=== PATIENT | male | born 1985 | race Caucasian/White ===

== ENCOUNTER 2020-07-29 22:29 | Emergency (ER) | payer SELFPAY ==
[2020-07-30] MEDS ORDERED: KETOROLAC TROMETHAMINE 60 MG/2 ML SDV IM ONE (00:05)
--- NOTE | 2020-07-30 00:06 | ER Document Report ---
ED Medical Screen (RME) - General Chief Complaint: Flank Pain Stated Complaint: FLANK PAIN Notes: Patient is a 34-year-old white male with a history of kidney stones who presents the emergency department the chief complaint of left flank pain that began this evening. He states this feels similar to the kidney stone he had previously but worse. States the pain has fluctuated over the past 3 hours. States he was lying down in bed in tears earlier today. Denies any difficulty with urination. Denies any testicular pain or swelling. No nausea or vomiting. No fever. I have treated and performed a rapid initial assessment of this patient. A comprehensive ED assessment and evaluation of the patient, analysis of test results and completion of medical decision making process will be conducted by additional ED providers. PHYSICAL EXAMINATION: GENERAL: Well-appearing, well-nourished and in no acute distress. A&Ox4. Answers questions appropriately. - Related Data Allergies/Adverse Reactions: No Known Allergies Allergy (Unverified 07/30/20 00:00) Past Medical History - Social History Frequency of alcohol use: None Drug Abuse: None Physical Exam - Vital signs Vitals: Temp Pulse Resp BP Pulse Ox 98.2 F 108 H 16 160/114 H 100 07/29/20 23:46 07/29/20 23:46 07/29/20 23:46 07/29/20 23:46 07/29/20 23:46 Course - Vital Signs Vital signs: Temp Pulse Resp BP Pulse Ox 98.2 F 108 H 16 160/114 H 100 07/29/20 23:46 07/29/20 23:46 07/29/20 23:46 07/29/20 23:46 07/29/20 23:46
--- NOTE | 2020-07-30 04:57 | RADIOLOGY REPORT (SQ) ---
CT abdomen and pelvis without contrast on 08/09/2020 at 3:52 AM CLINICAL INDICATION: Left-sided back pain TECHNIQUE: Multiple axial images are obtained throughout the abdomen and pelvis without the administration of contrast. This exam was performed according to our departmental dose-optimization program, which includes automated exposure control, adjustment of the mA and/or kV according to patient size and/or use of iterative reconstruction technique. Total DLP is 365.28 mGy*cm. COMPARISON: None FINDINGS: Abdomen: The lung bases are clear. Gallstone is noted in the gallbladder. There are couple of small nonobstructing left renal stones. There is minimal left hydronephrosis and mild left hydroureter to the level of a 4 mm left UVJ stone. There is minimal left perinephric and periureteral stranding related to the obstruction. No right-sided renal or ureteral stone is noted. Small left renal cyst is noted. The unenhanced solid abdominal organs are otherwise unremarkable. There is no abdominal adenopathy. There is no free fluid or free air within the abdomen. The abdominal portion of the GI tract is unremarkable. Pelvis: There is no free fluid in the pelvis. There is no pelvic adenopathy. The pelvic portion of the GI tract including the appendix is unremarkable. 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 Prostate is mildly enlarged, please correlate with physical exam and PSA levels. IMPRESSION: 1. Minimally obstructing 4 mm left UVJ stone. 2. Small nonobstructing left renal stones. 3. Cholelithiasis. 4. Mild prostate enlargement.
[2020-07-30 05:42] VITALS: BP 137/92
[2020-07-30 06:18] LABS: ABSOLUTE BASOPHILS # (AUTO) 0.1 10^3/uL (0.0-0.2); ABSOLUTE EOSINOPHILS # (AUTO) 0.4 10^3/uL (0.0-0.6); ABSOLUTE LYMPHOCYTES (AUTO) 2.4 10^3/uL (0.5-4.7); ABSOLUTE MONOCYTES (AUTO) 0.8 10^3/uL (0.1-1.4); ABSOLUTE NEUT (AUTO) 7.3 10^3/uL (1.7-8.2); BASOPHILS % (AUTO) 0.8 % (0-2); HEMATOCRIT 38.9 % (37.9-51.0); HEMOGLOBIN 13.3 g/dL (13.5-17.0); LYMPHOCYTES % (AUTO) 21.9 % (13-45); MEAN CORPUSCULAR HGB CONC 34.1 g/dL (32.0-36.0); MEAN CORPUSCULAR VOLUME 82 fl (80-97); MONOCYTES % (AUTO) 7.4 % (3-13); PLATELET COUNT 319 10^3/uL (150-450); RED BLOOD COUNT 4.74 10^6/uL (4.35-5.55); RED CELL DISTRIBUTION WIDTH 14.1 % (11.5-14.0); SEGMENTED NEUTROPHILS % (AUTO) 65.9 % (42-78); TOTAL CELLS COUNTED % (AUTO) 100 %; WHITE BLOOD COUNT 11.1 10^3/uL (4.0-10.5)
[2020-07-30 06:23] LABS: APPEARANCE,URINE CLEAR; BILIRUBIN,URINE NEGATIVE (NEGATIVE); COLOR,URINE STRAW; GLUCOSE, URINE NEGATIVE (NEGATIVE); KETONES,URINE NEGATIVE (NEGATIVE); PROTEIN,URINE NEGATIVE (NEGATIVE); URINE SPECIFIC GRAVITY 1.006; UROBILINOGEN,URINE NEGATIVE mg/dL (<2.0)
[2020-07-30 06:32] LABS: ALBUMIN 4.8 g/dL (3.5-5.0); ALKALINE PHOSPHATASE 117 U/L (38-126); ANION GAP 10 (5-19); ASPARTATE AMINO TRANSFERASE 27 U/L (17-59); BILIRUBIN,DIRECT 0.3 mg/dL (0.0-0.4); BILIRUBIN,TOTAL 0.6 mg/dL (0.2-1.3); BLOOD UREA NITROGEN 16 mg/dL (7-20); CALCIUM 10.1 mg/dL (8.4-10.2); CARBON DIOXIDE 24 mmol/L (22-30); CHLORIDE 103 mmol/L (98-107); GLUCOSE 99 mg/dL (75-110); POTASSIUM 4.9 mmol/L (3.6-5.0); TOTAL PROTEIN 7.5 g/dL (6.3-8.2)
--- NOTE | 2020-07-30 09:45 | ER Document Report ---
ED GI/ - General Chief Complaint: Flank Pain Stated Complaint: FLANK PAIN Time Seen by Provider: 07/30/20 09:21 Primary Care Provider: [facility] [Provider Group] - Follow up as needed [facility] [Outside] - Follow up as needed Notes: Patient is a 34-year-old male presents emergency department with a chief complaint of left flank pain. Patient reports he had acute onset of left flank pain last night. Patient reports that he does have a history of kidney stones about 5 years ago but that this pain was worse. Patient reports that since being seen in triage she was given a shot of pain medication which did help with his pain. Patient denies pain at this time. Patient denies trouble urinating. Patient denies fever. Patient denies blood within his urine. - Related Data Allergies/Adverse Reactions: No Known Allergies Allergy (Unverified 07/30/20 00:00) Past Medical History - General Information source: Patient - Social History Smoking Status: Current Every Day Smoker Frequency of alcohol use: None Drug Abuse: None Lives with: Family Family History: Reviewed & Not Pertinent - Past Medical History Cardiac Medical History: Reports: None Pulmonary Medical History: Reports: None EENT Medical History: Reports: None Neurological Medical History: Reports: None Endocrine Medical History: Reports: None Renal/ Medical History: Reports: None Malignancy Medical History: Reports None GI Medical History: Reports: None Musculoskeletal Medical History: Reports None Skin Medical History: Reports None Psychiatric Medical History: Reports: None Traumatic Medical History: Reports: None Infectious Medical History: Reports: None Surgical Hx: Negative Review of Systems - Review of Systems Constitutional: No symptoms reported EENT: No symptoms reported Cardiovascular: No symptoms reported Respiratory: No symptoms reported Gastrointestinal: See HPI Genitourinary: See HPI Male Genitourinary: No symptoms reported Musculoskeletal: No symptoms reported Skin: No symptoms reported Hematologic/Lymphatic: No symptoms reported Neurological/Psychological: No symptoms reported Physical Exam - Vital signs Vitals: Temp Pulse Resp BP Pulse Ox 98.2 F 108 H 16 160/114 H 100 07/29/20 23:46 07/29/20 23:46 07/29/20 23:46 07/29/20 23:46 07/29/20 23:46 Interpretation: Hypertensive - Notes Notes: GENERAL: Well-appearing, well-nourished and in no acute distress. HEAD: Atraumatic, normocephalic. EYES: Pupils equal round and reactive to light, extraocular movements intact, sclera anicteric, conjunctiva are normal. ENT: nares patent, oropharynx clear without exudates. Moist mucous membranes. NECK: Normal range of motion, supple without lymphadenopathy or JVD. LUNGS: Breath sounds clear to auscultation bilaterally and equal. No wheezes rales or rhonchi. HEART: Regular rate and rhythm without murmurs, rubs or gallops. ABDOMEN: Soft, nontender, normoactive bowel sounds. No guarding, no rebound. No masses appreciated. BACK: No cervical, thoracic, lumbar midline tenderness. No saddle anesthesia, normal distal neurovascular exam. GENITOURINARY: Deferred. EXTREMITIES: Normal range of motion, no pitting or edema. No clubbing or cyanosis. NEUROLOGICAL: Cranial nerves II through XII grossly intact. Normal speech, normal gait. PSYCH: Normal mood, normal affect. SKIN: Warm, Dry, normal turgor, no rashes or lesions noted. Course - Re-evaluation Re-evalutation: 07/30/20 09:36 Patient did receive some Toradol about 9 hours ago. He states that his pain has subsided significantly. Patient no acute distress. Patient does have a 4 mm minimally obstructing stone in the UVJ. Will prescribe the patient Flomax, Percocet as well as Toradol. It was also noted that the patient has an enlarged prostate. Patient was not aware of this and does not have a primary care physician. I did inform him to follow-up with a urologist. Patient reports he is urinating without any issues at this time. Patient is nontoxic-appearing. 07/30/20 10:41 Prior to discharge patient was not febrile, tachycardic or hypotensive. Patient ambulated out of the emergency department no acute distress and was given strict return precautions. - Vital Signs Vital signs: Temp Pulse Resp BP Pulse Ox 98.1 F 90 18 137/92 H 100 07/30/20 09:11 07/30/20 09:11 07/30/20 09:11 07/30/20 05:28 07/30/20 09:11 - Laboratory Result Diagrams: 07/30/20 05:30 07/30/20 05:30 Laboratory results interpreted by me: 07/29/20 07/30/20 07/30/20 12:06 05:30 05:30 WBC 11.1 H Hgb 13.3 L RDW 14.1 H Sodium 136.8 L Urine Blood LARGE H 07/30/20 09:35 Patient does not have a significant leukocytosis, alteration electrolytes or kidney function. Urinalysis unremarkable although this does show large amount of blood which is consistent with the CT scan showing a stone. - Diagnostic Test Radiology reviewed: Reports reviewed Radiology results interpreted by me: Abdomen/Pelvis CT 07/30/20 00:05 IMPRESSION: 1. Minimally obstructing 4 mm left UVJ stone. 2. Small nonobstructing left renal stones. 3. Cholelithiasis. 4. Mild prostate enlargement. Discharge - Discharge Clinical Impression: Left ureteral stone, Left flank pain, Enlarged prostate Condition: Stable Disposition: HOME, SELF-CARE Additional Instructions: *You do have a kidney stone at that is located in the proximal ureter. You are very close to passing the stone. I will prescribe you with 3 medications. You will be prescribed Toradol which is an anti-inflammatory. Take this first if you develop pain. This is a great anti-inflammatory for kidney stones. You also get being given Flomax. This helps dilate the ureter to help pass your stone. You also be given Percocet. This is her narcotic. Take this only for severe pain. Do not drive or operate heavy machinery while on this medication. *It was also noted that you had an enlarged prostate. You do need to follow-up with either her primary care physician or the urologist to have this further investigated. It is recommended to have a PSA level obtained as we have discussed at your discharge. *Please return the emergency department if you develop severe abdominal pain, back pain, high fever or if you are unable to pass her urine. Kidney Stone You are passing or have passed a kidney stone. These stones are usually due to increased calcium or uric acid concentrations in your urine. Stones within the kidney itself are not painful. The pain occurs as the stone leaves the kidney to pass down the long tube, called the ureter, leading to the bladder. If the stone is small, it will usually pass by itself. Most patients can pass the stone at home. You will usually receive medications for pain, nausea or vomiting, and sometimes a medication to assist in passing the kidney stone. However, if the pain is very severe or if vomiting prevents you from taking oral pain medications, you may need to return for further treatment. Drink three or four quarts of fluids per day. You will be given pain medication (if needed) and urine strainers. Strain all your urine to see if the stone passes. If your doctor has asked you to bring the stone in for analysis, return with the stone once it has passed. Return if pain or vomiting become severe, if you develop a high fever, if you are unable to pass your urine, or if other unusual symptoms occur. *[facility] [address] [facility] [phone] *[facility] [address] [place] [address] *Dr. Amezcua [address] [place], [place] [phone] Prescriptions: Ketorolac Tromethamine [Toradol 10 mg Tablet] 10 mg PO Q6HP PRN #15 tablet PRN Reason: Tamsulosin HCl [Flomax 0.4 mg Cap.sr] 0.4 mg PO DAILY #7 cap.sr.24h Oxycodone HCl/Acetaminophen [Percocet 5-325 mg Tablet] 1 tab PO Q6 PRN #8 tablet PRN Reason: Forms: Return to Work Referrals: [facility] [Outside] - Follow up as needed [facility] [Provider Group] - Follow up as needed
[2020-07-30] MEDS ORDERED: TAMSULOSIN HCL 0.4 MG CAP.SR.24H PO ONE (09:48)
== END 2020-07-30 09:50 | disposition home or self-care (01) ==
LOC: ER 22:29
DX: N20.1 Calculus of ureter (principal); N40.0 Benign prostatic hyperplasia without lower urinary tract symptoms; K80.20 Calculus of gallbladder without cholecystitis without obstruction; R10.9 Unspecified abdominal pain; F17.200 Nicotine dependence, unspecified, uncomplicated; Z87.442 Personal history of urinary calculi
CPT/HCPCS: 99285; 96372; 36415; 83690; 85025; 80053; 81001; 74176; J1885